=== PATIENT | female | born 1990 | race Caucasian/White ===

== ENCOUNTER 2017-02-19 17:40 | Emergency (ER) | payer OTHER ==
[2017-02-19 18:17] VITALS: O2SAT 100
[2017-02-19 19:02] LABS: RBC URINE < 1 /hpf (0-3); URINE BACTERIA RARE (<OCC); URINE BILIRUBIN NEGATIVE (NEGATIVE); URINE BLOOD NEGATIVE (NEGATIVE); URINE COLOR Straw (YELLOW); URINE GLUCOSE (UA) NORMAL (Normal); URINE KETONE NEGATIVE (NEGATIVE); URINE LEUKOCYTE ESTERASE TRACE Leu/uL (Negative); URINE PROTEIN NEGATIVE (NEGATIVE); URINE UROBILINOGEN NORMAL mg/dL (0.2-1.0); WBC URINE 5 /hpf (0-5)
[2017-02-19] MEDS ORDERED: Sodium Chloride 0.9% 1,000 ML IV ONE (20:18)
[2017-02-19 21:01] LABS: BASO % 0.3 % (0.0-2.0); EOS # 0.2 K/uL (0.0-0.7); EOS % 2.9 % (0.0-4.0); HEMATOCRIT 41.7 % (34.0-47.0); LYMPH % 26.7 % (20.0-40.0); MEAN CORPUSCULAR HEMOGLOBIN 31.2 pg (27.0-31.0); MEAN CORPUSCULAR HGB CONC 33.9 g/dL (33.0-37.0); MEAN PLATELET VOLUME 7.2 fL (7.2-11.7); MONO # 1.1 K/uL (0.0-0.8); MONO % 14.2 % (0.0-10.0); NRBC % 0.1 % (0.0-2.0); RED CELL DISTRIBUTION WIDTH 13.6 % (11.5-14.5); WHITE BLOOD COUNT 7.5 K/uL (4.8-10.8)
[2017-02-19 21:10] LABS: CHLORIDE 104 mmol/L (98-107); POTASSIUM 3.5 mmol/L (3.6-5.2); SODIUM 140 mmol/L (132-148)
[2017-02-19 21:12] LABS: GFR AFRICAN-AMERICAN > 60
[2017-02-19 21:13] LABS: ALB/GLOB RATIO 1.3 (1.0-2.1); ALKALINE PHOSPHATASE 67 U/L (38-126); ALT/SGPT 27 U/L (9-52); AST/SGOT 22 U/L (14-36); BILIRUBIN,TOTAL 1.1 mg/dL (0.2-1.3); BLOOD UREA NITROGEN 8 mg/dL (7-17); CALCIUM 8.5 mg/dl (8.6-10.4); CARBON DIOXIDE 25 mmol/L (22-30); GLUCOSE,RANDOM 80 mg/dL (65-105); TOTAL PROTEIN 7.4 g/dL (6.3-8.3)
--- NOTE | 2017-02-19 21:30 | C.PDOC ---
History Of Present Illness 26 y/o female presents to ED with complaints of back pain for 1 week and x1 episode of vomiting yesterday. (+) urinary frequency. Denies abdominal pain, fever, chest pain, SOB, or any other complaints at this time. Time Seen by Provider: 02/19/17 19:54 Chief Complaint (Nursing): Back Pain History Per: Patient History/Exam Limitations: no limitations Onset/Duration Of Symptoms: Days Current Symptoms Are (Timing): Still Present Quality Of Discomfort: "Pain" Past Medical History Reviewed: Historical Data, Nursing Documentation, Vital Signs Vital Signs: Last Vital Signs Temp 98.1 F 02/19/17 21:30 Pulse 79 02/19/17 21:30 Resp 18 02/19/17 21:30 BP 126/72 02/19/17 21:30 Pulse Ox 100 02/19/17 22:12 - Medical History PMH: No Chronic Diseases Surgical History: No Surg Hx - [facility] Procedures DELIVERY OF PRODUCTS OF CONCEPTION, EXTERNAL APPROACH (06/13/15) REPAIR PERINEUM MUSCLE, OPEN APPROACH (06/13/15) Family History: States: No Known Family Hx - Social History Hx Tobacco Use: No Hx Alcohol Use: No Hx Substance Use: No - Immunization History Hx Tetanus Toxoid Vaccination: No Hx Influenza Vaccination: No Hx Pneumococcal Vaccination: No Review Of Systems Except As Marked, All Systems Reviewed And Found Negative. Constitutional: Negative for: Fever, Chills Gastrointestinal: Positive for: Vomiting. Negative for: Nausea, Abdominal Pain , Diarrhea Genitourinary: Negative for: Dysuria, Hematuria, Vaginal Discharge Musculoskeletal: Positive for: Back Pain Skin: Negative for: Rash Neurological: Positive for: Headache Physical Exam - Physical Exam Appears: Non-toxic, No Acute Distress Skin: Normal Color, Warm, Dry, No Rash Head: Atraumatic, Normacephalic Eye(s): bilateral: Normal Inspection, EOMI Nose: Normal Oral Mucosa: Moist Neck: Normal ROM, Supple Chest: Symmetrical Cardiovascular: Rhythm Regular, No Murmur Respiratory: Normal Breath Sounds, No Rales, No Rhonchi, No Wheezing Gastrointestinal/Abdominal: Soft, No Tenderness, No Guarding, No Rebound Back: No CVA Tenderness, No Vertebral Tenderness, Paraspinal Tenderness ((+) paralumbar tenderness) Extremity: Normal ROM, No Tenderness Extremity: Bilateral: Atraumatic, Normal Color And Temperature, Normal ROM Neurological/Psych: Oriented x3, Normal Speech, Normal Motor, Normal Sensation Gait: Steady ED Course And Treatment - Laboratory Results Result Diagrams: 02/19/17 20:57 02/19/17 20:57 O2 Sat by Pulse Oximetry: 100 (RA) Pulse Ox Interpretation: Normal Progress Note: Toradol ordered. Discussed with pt that currently pt is asymptomatic, tolerating po, no abdominal tenderness, and labs are WNL. No signs of acute abdomen but can not be ruled out. Agreed no CT at the moment but will return to ER if symtpoms persist or worsen. UA clean, culture sent for further evaluaiton. Patient was instructed to follow up with physician/clinic in 1-2 days for further evaluation or return to ED if symptoms persist or worsen. Patient's status improved during Emergency Department evaluation. Disposition - Disposition Disposition: HOME/ ROUTINE Disposition Time: 21:29 Condition: STABLE Additional Instructions: Follow up with primary medical doctor in 1-3 days without fail for further evaluation. Take medications as prescribed. Return to the emergency department at any time if symptoms persist or worsen. Prescriptions: Ibuprofen [Motrin] 600 mg PO Q6 PRN #20 tab PRN Reason: Pain, Mild (1-3) Phenazopyridine HCl [Pyridium] 100 mg PO TID #6 tablet Instructions: Back Pain (ED) Forms: [facility] (French), Work Excuse - Clinical Impression Clinical Impression: Low back pain - PA / PRACTICE COORDINATOR / Resident Statement MD/DO has reviewed & agrees with the documentation as recorded. - Scribe Statement The provider has reviewed the documentation as recorded by the Marisa Ca All medical record entries made by the Marisa were at my direction and personally dictated by me. I have reviewed the chart and agree that the record accurately reflects my personal performance of the history, physical exam, medical decision making, and the department course for this patient. I have also personally directed, reviewed, and agree with the discharge instructions and disposition.
[2017-02-19 21:31] VITALS: BP 126/72; PULSE 79; RESP 18; TEMP 98.1
--- NOTE | 2017-02-20 09:40 | RAD ---
PROCEDURE: Radiographs of the Lumbar Spine. HISTORY: pain COMPARISON: No prior. FINDINGS: BONES: Normal alignment. No listhesis. No fracture. DISC SPACES: Unremarkable. OTHER FINDINGS: [id number] constipation. IUD is seen in the upper pelvis. IMPRESSION: No evidence of acute fracture subluxation or significant degenerative changes. Jpys-am-[id number] constipation.
== END 2017-02-19 21:55 | disposition home or self-care (01) ==
LOC: C.ER 17:40
DX: M54.5 Low back pain (principal)
CPT/HCPCS: 72100; 80053; 81001; 83690; 83880; 84703; 85025; 87086; 96374; 99285; J1885; J7040

== ENCOUNTER 2017-06-03 20:41 | Emergency (ER) | payer OTHER ==
[2017-06-03 22:27] LABS: HCG,QUALITATIVE URINE NEGATIVE (NEGATIVE)
[2017-06-03 22:28] LABS: SQUAMOUS EPITHIAL 1 /hpf (0-5); URINE BILIRUBIN NEGATIVE (NEGATIVE); URINE BLOOD NEGATIVE (NEGATIVE); URINE CLARITY Clear (Clear); URINE COLOR Yellow (YELLOW); URINE GLUCOSE (UA) NORMAL (Normal); URINE LEUKOCYTE ESTERASE NEG Leu/uL (Negative); URINE NITRATE NEGATIVE (NEGATIVE); URINE PROTEIN NEGATIVE (NEGATIVE); URINE UROBILINOGEN NORMAL mg/dL (0.2-1.0)
[2017-06-03] MEDS ORDERED: Sodium Chloride 0.9% 1,000 ML IV ONE (22:54)
[2017-06-03] MEDS ORDERED: Sodium Chloride 0.9% 1,000 ML ONE (23:08)
[2017-06-03 23:26] LABS: BASO # 0.1 K/uL (0.0-0.2); BASO % 1.1 % (0.0-2.0); EOS # 0.2 K/uL (0.0-0.7); EOS % 2.2 % (0.0-4.0); HEMOGLOBIN 13.2 g/dL (11.0-16.0); LYMPH # 3.7 K/uL (1.0-4.3); LYMPH % 40.1 % (20.0-40.0); MEAN CELL VOLUME 92.4 fL (81.0-99.0); MEAN CORPUSCULAR HEMOGLOBIN 31.7 pg (27.0-31.0); MEAN CORPUSCULAR HGB CONC 34.3 g/dL (33.0-37.0); MEAN PLATELET VOLUME 7.5 fL (7.2-11.7); MONO # 0.9 K/uL (0.0-0.8); NEUT # 4.3 K/uL (1.8-7.0); NEUT % 46.6 % (50.0-75.0); RBC 4.17 Mil/uL (3.80-5.20); RED CELL DISTRIBUTION WIDTH 13.5 % (11.5-14.5); WHITE BLOOD COUNT 9.2 K/uL (4.8-10.8)
[2017-06-03 23:38] LABS: ALB/GLOB RATIO 1.2 (1.0-2.1); ALBUMIN 3.9 g/dL (3.5-5.0); ALT/SGPT 27 U/L (9-52); AST/SGOT 22 U/L (14-36); BLOOD UREA NITROGEN 8 mg/dL (7-17); CALCIUM 8.5 mg/dl (8.6-10.4); GFR AFRICAN-AMERICAN > 60; GFR NON-AFRICAN AMERICAN > 60; LIPASE 207 U/L (23-300)
--- NOTE | 2017-06-04 00:04 | C.PDOC ---
History Of Present Illness Patient is a 26 y/o female who presents to the ED with a complaint of crampy lower abdominal discomfort for the last 3 days. Patient denies any high risk sexual intercourse or vaginal intercourse. No other physical complaints at this time. Time Seen by Provider: 06/03/17 21:59 Chief Complaint (Nursing): Abdominal Pain History Per: Patient History/Exam Limitations: no limitations Onset/Duration Of Symptoms: Days (3) Current Symptoms Are (Timing): Still Present Location Of Pain/Discomfort: Suprapubic Quality Of Discomfort: Cramping Past Medical History Reviewed: Historical Data, Nursing Documentation, Vital Signs Vital Signs: Last Vital Signs Temp 97.8 F 06/04/17 00:18 Pulse 73 06/04/17 00:18 Resp 18 06/04/17 00:18 BP 111/70 06/04/17 00:18 Pulse Ox 100 06/04/17 00:18 - Medical History PMH: No Chronic Diseases Surgical History: No Surg Hx - [facility] Procedures DELIVERY OF PRODUCTS OF CONCEPTION, EXTERNAL APPROACH (06/13/15) REPAIR PERINEUM MUSCLE, OPEN APPROACH (06/13/15) Family History: States: No Known Family Hx - Social History Hx Tobacco Use: No Hx Alcohol Use: No Hx Substance Use: No - Immunization History Hx Tetanus Toxoid Vaccination: No Hx Influenza Vaccination: No Hx Pneumococcal Vaccination: No Review Of Systems Gastrointestinal: Positive for: Abdominal Pain (lower), Constipation Genitourinary: Negative for: Vaginal Discharge Physical Exam - Physical Exam Appears: Well, Non-toxic, No Acute Distress Skin: Normal Color, Warm, Dry Head: Atraumatic, Normacephalic Oral Mucosa: Moist Cardiovascular: Rhythm Regular, No Murmur Respiratory: Normal Breath Sounds, No Rales, No Rhonchi, No Wheezing Gastrointestinal/Abdominal: Soft, No Tenderness, Other (mild suprapubic fullness ) ED Course And Treatment - Laboratory Results Result Diagrams: 06/03/17 23:23 06/03/17 23:23 Lab Interpretation: Normal (ua neg) Urine POC: Negative O2 Sat by Pulse Oximetry: 98 - Radiology CXR: Interpreted by Me CXR Interpretation: Yes: No Acute Disease - Other Rad abd x 2 X-Ray: Interpreted by Me (+FOS no obst/FA) Progress Note: obstructive series xr ordered. gc test, toradol, and iv fluids administered. Reevaluation Time: 00:04 Reassessment Condition: Improved Medical Decision Making Medical Decision Making: constipation LOW susp of GC/Chlamydia- sent and pending @ d/c. did NOT treat empirically. Disposition Doctor Will See Patient In The: Office Counseled Patient/Family Regarding: Studies Performed, Diagnosis - Disposition Referrals: [facility] [Outside] [facility] [Outside] Disposition: HOME/ ROUTINE Disposition Time: 00:05 Condition: GOOD Additional Instructions: Estrenemiento: juan ramon joshua botella del purgante (Citrato de Magnesio) ahora, y re-evalua vital molestia del abdomen despues de usar el francine 2-3 veces Sigue joshua dieta saludable come 7 verduras y frutas crudas diarios Juan Ramon mas agua. Purgantes o' laxantes oswald necessario si las sintoma se reoccuran. Prueba de la orina: Fue mandado al laboratorio Si sale positivo le llamamos Si sale negativo no te llamamos- esta normal. Sigue en la [facility] (gratis) oswald necessario. Prescriptions: Magnesium Citrate [[facility] Magnesium Citrate] 300 ml PO ONCE PRN #1 bottle PRN Reason: Constipation Instructions: Constipation (ED) Forms: [facility] (Italian) Print Language: LATVIAN - Clinical Impression Clinical Impression: Colicky periumbilical abdominal pain - Scribe Statement The provider has reviewed the documentation as recorded by the Scribe Lanny Fritz All medical record entries made by the Scribe were at my direction and personally dictated by me. I have reviewed the chart and agree that the record accurately reflects my personal performance of the history, physical exam, medical decision making, and the department course for this patient. I have also personally directed, reviewed, and agree with the discharge instructions and disposition.
[2017-06-04 00:20] VITALS: BP 111/70; PULSE 73; RESP 18; TEMP 97.8
[2017-06-04 00:42] VITALS: O2SAT 98
--- NOTE | 2017-06-04 08:39 | RAD ---
PROCEDURE: Radiographs of the chest and abdomen (obstructive series) HISTORY: abd pain COMPARISON: No prior. TECHNIQUE: AP radiograph of the chest, with upright and supine radiographs of the abdomen. FINDINGS: CHEST: Lungs: Clear. Cardiovascular: Normal size heart. No pulmonary vascular congestion. Pleura: No pleural fluid. No pneumothorax. Other findings: None. ABDOMEN AND PELVIS: Bowel: Extensive left and right stool retention. No evidence of mechanical obstruction. Free air: None. Bones: Unremarkable. Other findings: Pelvic IUD IMPRESSION: Extensive left and right stool retention. No evidence of mechanical obstruction.
== END 2017-06-04 00:30 | disposition home or self-care (01) ==
LOC: C.ER 20:41
DX: R10.33 Periumbilical pain (principal)
CPT/HCPCS: 74022; 80053; 81001; 83690; 84703; 85025; 87491; 87591; 96374; 99284; J1885; J7040

== ENCOUNTER 2017-07-17 18:56 | Emergency (ER) | payer OTHER ==
[2017-07-17 20:28] VITALS: O2SAT 100
[2017-07-17 21:42] VITALS: BP 141/96; PULSE 66; RESP 18; TEMP 98.2
[2017-07-17] MEDS ORDERED: Sodium Chloride 0.9% 500 ML IV STA (21:59)
--- NOTE | 2017-07-17 22:53 | C.PDOC ---
History Of Present Illness 27 year old female presents to the ED for evaluation of frontal headache x4 days , progressively worsening since yesterday. She complains of pain into right side of neck and right ear since yesterday. Patient denies dizziness, photophobia or vision changes , no weakness, numbness. She states that she has never had a headache as intense as this. She has tried taking Tylenol with minimal relief but headache persists. Time Seen by Provider: 07/17/17 21:50 Chief Complaint (Nursing): Headache History Per: Patient History/Exam Limitations: no limitations Onset/Duration Of Symptoms: Days Current Symptoms Are (Timing): Worse Severity: Moderate Preceeding Symptoms: None Associated Symptoms: denies: Blurred Vision Recent travel outside of the [place]: No Past Medical History Reviewed: Historical Data, Nursing Documentation, Vital Signs Vital Signs: Last Vital Signs Temp 98.2 F 07/17/17 21:42 Pulse 66 07/17/17 21:42 Resp 18 07/17/17 21:42 BP 141/96 H 07/17/17 21:42 Pulse Ox 100 07/18/17 00:43 - [facility] Procedures DELIVERY OF PRODUCTS OF CONCEPTION, EXTERNAL APPROACH (06/13/15) REPAIR PERINEUM MUSCLE, OPEN APPROACH (06/13/15) Family History: States: Unknown Family Hx - Social History Hx Tobacco Use: No Hx Alcohol Use: No Hx Substance Use: No - Immunization History Hx Tetanus Toxoid Vaccination: No Hx Influenza Vaccination: No Hx Pneumococcal Vaccination: No Review Of Systems Constitutional: Negative for: Fever, Chills Eyes: Negative for: Vision Change ENT: Positive for: Ear Pain Cardiovascular: Negative for: Chest Pain Respiratory: Negative for: Shortness of Breath Gastrointestinal: Negative for: Nausea, Vomiting, Abdominal Pain, Diarrhea Musculoskeletal: Positive for: Neck Pain Skin: Negative for: Rash Neurological: Positive for: Headache. Negative for: Weakness, Numbness, Dizziness Physical Exam - Physical Exam Appears: Well, Non-toxic, No Acute Distress Skin: Normal Color, Warm, Dry Head: Atraumatic, Normacephalic, Other (tender right postauricular adenopathy) Eye(s): bilateral: Normal Inspection, PERRL, EOMI Ear(s): Bilateral: Normal Oral Mucosa: Moist Throat: Normal Neck: Normal ROM, Supple, Other (No meningeal signs, no neck swelling) Cardiovascular: Rhythm Regular Respiratory: Normal Breath Sounds, No Rales, No Rhonchi, No Wheezing Gastrointestinal/Abdominal: Soft, No Tenderness Back: Normal Inspection Extremity: Normal ROM, No Deformity Neurological/Psych: Oriented x3, Normal Speech, Normal Cranial Nerves, Normal Motor, Normal Sensation Gait: Steady ED Course And Treatment O2 Sat by Pulse Oximetry: 100 Pulse Ox Interpretation: Normal Progress Note: Plan: IV reglan, toridol, and head CT. Reassessment Condition: Improved (Pt feels better. Head CT with no acute abn. Pt ambulatiry and neuro intact. Advised PMD f/u. Return precautions discussed and agreed by pt) Disposition - Disposition Disposition: HOME/ ROUTINE Disposition Time: 00:39 Condition: STABLE Additional Instructions: Please follw up with PMD Take meds as directed\ Return to ER if worse Prescriptions: Ibuprofen [Motrin] 600 mg PO Q6H #24 tab Instructions: Headache, Adult (DC) Forms: [facility] (Nigerian) - Clinical Impression Clinical Impression: Headache - Scribe Statement he provider has reviewed the documentation as recorded by the Scribe (Shant Carpio) Provider Attestation All medical record entries made by the Scribe were at my direction and personally dictated by me. I have reviewed the chart and agree that the record accurately reflects my personal performance of the history, physical exam, medical decision making, and the department course for this patient. I have also personally directed, reviewed, and agree with the discharge instructions and disposition.
--- NOTE | 2017-07-18 08:27 | CT ---
PROCEDURE: CT HEAD WITHOUT CONTRAST. HISTORY: Headache COMPARISON: None available. TECHNIQUE: Axial computed tomography images were obtained through the head/brain without intravenous contrast. Radiation dose: Total exam DLP = 788 mGy-cm. This CT exam was performed using one or more of the following dose reduction techniques: Automated exposure control, adjustment of the mA and/or kV according to patient size, and/or use of iterative reconstruction technique. FINDINGS: HEMORRHAGE: No intracranial hemorrhage. BRAIN: No mass effect or edema. No atrophy or chronic microvascular ischemic changes. VENTRICLES: Unremarkable. No hydrocephalus. CALVARIUM: Unremarkable. PARANASAL SINUSES: Mucoperiosteal thickening in the sphenoid sinuses consistent with chronic sinusitis. MASTOID AIR CELLS: Unremarkable as visualized. No inflammatory changes. OTHER FINDINGS: None. IMPRESSION: No evidence of acute intracranial abnormality. If headache persists, consider further evaluation with MRI. These findings were preliminarily reported at 11:48 p.m. on 07/17/[address] Meghana Hoffman from [facility].
== END 2017-07-18 00:46 | disposition home or self-care (01) ==
LOC: C.ER 18:56
DX: R51 Headache (principal)
CPT/HCPCS: 70450; 96361; 96374; 96375; 99285; J1885; J2765; J7040

== ENCOUNTER 2017-07-28 17:44 | Emergency (ER) | payer OTHER ==
[2017-07-28 17:51] VITALS: BMI 20.1
[2017-07-28 17:53] VITALS: BP 157/92; PULSE 92; RESP 18; TEMP 98.3; O2SAT 100
[2017-07-28] MEDS ORDERED: Apap-Butalbital-Caffeine 325-50-40mg Tab PO STA (18:10)
--- NOTE | 2017-07-28 18:12 | C.PDOC ---
History Of Present Illness 27 year old female presents to ED for evaluation of intermittent episodes of headache for the last 2 weeks. Patient states that the headache starts at the back of the head and moves forward. She also reports associated nausea occasionally. Notes taking Ibuprofen with transient relief. Notes she was seen in the ER last week, and had CT scan done. Patient states she tried to follow up with neurologist but was not able to find an appointment within the next few days. Patient is requesting to have more testing and further evaluation of her persistent headache. Denies dizziness, lightheadedness, visual changes, change in speech, extremity weakness, numbness, nausea, vomiting, or fever. Patient also states her blood pressure was high, and has been told in the past she has hypertension but has not been taking any meds for it. Denies chest pain, or shortness of breath. Time Seen by Provider: 07/28/17 17:58 Chief Complaint (Nursing): Headache History Per: Patient History/Exam Limitations: no limitations Onset/Duration Of Symptoms: Days, Intermittent Episodes Current Symptoms Are (Timing): Still Present Quality: Aching Preceeding Symptoms: denies: Visual Disturbances, Known Migraine Symptoms Associated Symptoms: denies: Photophobia, Blurred Vision, Nausea, Vomiting, Extremity Weakness Recent travel outside of the [place]: No Additional History Per: Patient Past Medical History Reviewed: Historical Data, Nursing Documentation, Vital Signs Vital Signs: Last Vital Signs Temp 98.3 F 07/28/17 17:51 Pulse 92 H 07/28/17 17:51 Resp 18 07/28/17 17:51 BP 157/92 H 07/28/17 17:51 Pulse Ox 100 07/28/17 19:00 - [facility] Procedures DELIVERY OF PRODUCTS OF CONCEPTION, EXTERNAL APPROACH (06/13/15) REPAIR PERINEUM MUSCLE, OPEN APPROACH (06/13/15) Family History: States: Unknown Family Hx - Social History Hx Tobacco Use: No Hx Alcohol Use: No Hx Substance Use: No - Immunization History Hx Tetanus Toxoid Vaccination: No Hx Influenza Vaccination: No Hx Pneumococcal Vaccination: No Review Of Systems Except As Marked, All Systems Reviewed And Found Negative. Constitutional: Negative for: Fever, Chills Eyes: Negative for: Vision Change Cardiovascular: Negative for: Chest Pain, Palpitations, Edema, Light Headedness Respiratory: Negative for: Cough, Shortness of Breath Gastrointestinal: Negative for: Nausea, Vomiting Neurological: Positive for: Headache. Negative for: Weakness, Numbness, Change in Speech, Dizziness Physical Exam - Physical Exam Appears: Non-toxic, No Acute Distress Skin: Normal Color, Warm, Dry Head: Atraumatic, Normacephalic Eye(s): bilateral: Normal Inspection, PERRL, EOMI, Other (no nystagmus) Ear(s): Bilateral: Normal Nose: Normal Oral Mucosa: Moist Tongue: Normal Appearing Lips: Normal Appearing Throat: Normal, No Erythema, No Exudate, No Drooling Neck: Normal ROM, Supple Chest: Symmetrical, No Tenderness Cardiovascular: Rhythm Regular, No Murmur Respiratory: Normal Breath Sounds, No Rales, No Rhonchi, No Wheezing Extremity: Normal ROM, No Deformity Neurological/Psych: Oriented x3, Normal Speech, Normal Cranial Nerves (2-12 Grossly Intact), Normal Motor (Equal 5/5 Strength Bilaterally), Normal Sensation , Other (no focal deficits) ED Course And Treatment O2 Sat by Pulse Oximetry: 100 (RA) Pulse Ox Interpretation: Normal Medical Decision Making Medical Decision Making: Impression: 27 year old female complaints of intermittent headache for the last 2 weeks. Prior records reviewed patient seen in ED last week 07/18/[address] head showing no intracranial abnormality. Plan: Fioricet Reglan Reassess, dispo Progress: On reassessment, patient is resting comfortably, is tolerating PO, and headache has much improved. Patient has no neurologic deficit, photophobia, rash, fever, or nuchal rigidity. Explain to patient she needs to see neuro outpatient. Recommend DASH diet and exercise to help with HTN. Patient was instructed to follow up with clinic in 1-2 days. Disposition Counseled Patient/Family Regarding: Diagnosis, Need For Followup, Rx Given - Disposition Referrals: Nadya Barba MD [Staff Provider] - Alex Membreno MD [Staff Provider] - Disposition: HOME/ ROUTINE Disposition Time: 18:57 Condition: STABLE Additional Instructions: Please follow up in the clinic for further evaluation. Take pain medicine as needed. Try dietary changes and exercise to help with blood pressure Prescriptions: Acetaminophen/Butalbital/Caf [Fioricet] 1 tab PO Q8 PRN #20 tab PRN Reason: Headache Metoclopramide [Reglan] 1 tab PO Q8 PRN #25 tab PRN Reason: Headache Instructions: DASH Diet, Headache, Adult Forms: [facility] ([place]) - POA Present On Arrival: None - Clinical Impression Clinical Impression: HTN (hypertension), Migraine - PA / HIDE MILL MAN / Resident Statement MD/DO has reviewed & agrees with the documentation as recorded. - Scribe Statement The provider has reviewed the documentation as recorded by the Scribe Feroz Jaime All medical record entries made by the Salvatoreibe were at my direction and personally dictated by me. I have reviewed the chart and agree that the record accurately reflects my personal performance of the history, physical exam, medical decision making, and the department course for this patient. I have also personally directed, reviewed, and agree with the discharge instructions and disposition.
[2017-07-28] MEDS ORDERED: Apap-Butalbital-Caffeine 325-50-40mg Tab ONE (18:23)
== END 2017-07-28 19:10 | disposition home or self-care (01) ==
LOC: C.ER 17:44
DX: I10 Essential (primary) hypertension (principal); G43.909 Migraine, unspecified, not intractable, without status migrainosus

== ENCOUNTER 2017-08-28 18:12 | Emergency (ER) | payer OTHER ==
[2017-08-28 18:12] VITALS: BMI 20.1
[2017-08-28 18:21] VITALS: TEMP 98.7; O2SAT 100
--- NOTE | 2017-08-28 19:45 | C.PDOC ---
History Of Present Illness 27 y/o female presents to the ED complaining of left-sided chest pain radiating to her left arm, onset today. Also complains of daily headaches. Patient was seen here at end of June and in early July for the headaches and had a negative work-up including labs and CT. She has been treated with Toradol, Fioricet, and nsaids without relief. Headache is described as frontal, occipital , constant throughout the day. Occurs at work and on days off. Patient states she feels hot inside but no fever, chills, cough, shortness of breath, URI symptoms, nausea, vomiting, visual disturbances, or neck pain. She was referred to the clinic and has an appointment on 09/09. Time Seen by Provider: 08/28/17 19:15 Chief Complaint (Nursing): Weakness/Neurological Deficit History Per: Patient History/Exam Limitations: no limitations Onset/Duration Of Symptoms: Days Current Symptoms Are (Timing): Still Present Past Medical History Reviewed: Historical Data, Nursing Documentation, Vital Signs Vital Signs: Last Vital Signs Temp 98.7 F 08/28/17 18:17 Pulse 72 08/28/17 19:41 Resp 16 08/28/17 19:41 BP 141/87 08/28/17 19:41 Pulse Ox 100 08/28/17 21:18 - Medical History PMH: No Chronic Diseases Surgical History: No Surg Hx - [facility] Procedures DELIVERY OF PRODUCTS OF CONCEPTION, EXTERNAL APPROACH (06/13/15) REPAIR PERINEUM MUSCLE, OPEN APPROACH (06/13/15) Family History: States: Unknown Family Hx - Social History Hx Tobacco Use: No Hx Alcohol Use: No Hx Substance Use: No - Immunization History Hx Tetanus Toxoid Vaccination: No Hx Influenza Vaccination: No Hx Pneumococcal Vaccination: No Review Of Systems Except As Marked, All Systems Reviewed And Found Negative. Constitutional: Negative for: Fever, Chills Eyes: Negative for: Vision Change ENT: Negative for: Nose Congestion, Throat Pain Cardiovascular: Positive for: Chest Pain Respiratory: Negative for: Cough, Shortness of Breath Gastrointestinal: Negative for: Nausea, Vomiting, Abdominal Pain Musculoskeletal: Positive for: Arm Pain. Negative for: Neck Pain Neurological: Positive for: Headache Physical Exam - Physical Exam Appears: Non-toxic, No Acute Distress Skin: Normal Color, Warm, Dry Head: Atraumatic, Normacephalic Eye(s): bilateral: Normal Inspection, PERRL, EOMI Ear(s): Bilateral: Normal Nose: Normal Oral Mucosa: Moist Throat: Normal, No Erythema, No Exudate Neck: Normal ROM, Supple, No Other (meningeal signs) Chest: Symmetrical, No Tenderness Cardiovascular: Rhythm Regular, No Murmur Respiratory: Normal Breath Sounds, No Accessory Muscle Use, No Rhonchi, No Wheezing Gastrointestinal/Abdominal: Soft, No Tenderness, No Distention Extremity: Bilateral: Atraumatic, Normal Color And Temperature, Normal ROM Neurological/Psych: Oriented x3, Normal Speech ED Course And Treatment - Laboratory Results Result Diagrams: 08/28/17 19:38 08/28/17 19:38 Lab Interpretation: Normal ECG: Interpreted By Me ECG Rhythm: Sinus Rhythm ECG Interpretation: Normal O2 Sat by Pulse Oximetry: 100 (RA) Pulse Ox Interpretation: Normal - Radiology CXR: Interpreted by Me CXR Interpretation: Yes: No Acute Disease Progress Note: Labs reviewed, troponin is negative. Blood work is unremarkable. Reevaluation Time: 21:43 Reassessment Condition: Improved (BP 137/62) Medical Decision Making Medical Decision Making: Impression: 27 y/o female with daily headaches and 1 day of chest pain Time: 19:29 Initial Plan: * EKG * CMP * CBC * Troponin I * Chest x-ray * Urinalysis * Urine preg * Reevaluation Disposition Counseled Patient/Family Regarding: Studies Performed, Diagnosis, Need For Followup - Disposition Referrals: [facility] [Outside] Disposition: HOME/ ROUTINE Disposition Time: 21:43 Condition: IMPROVED Instructions: Chest Pain That Is Not Caused by the Heart (DC), Headache, Adult Forms: [employer] (Citizen [place]) - Clinical Impression Clinical Impression: Headache, Non-cardiac chest pain - Scribe Statement The provider has reviewed the documentation as recorded by the Scribe (Kamille Butler) Provider Attestation: All medical record entries made by the Scribe were at my direction and personally dictated by me. I have reviewed the chart and agree that the record accurately reflects my personal performance of the history, physical exam, medical decision making, and the department course for this patient. I have also personally directed, reviewed, and agree with the discharge instructions and disposition.
[2017-08-28 19:48] LABS: SQUAMOUS EPITHIAL < 1 /hpf (0-5); URINE BILIRUBIN NEGATIVE (NEGATIVE); URINE BLOOD NEGATIVE (NEGATIVE); URINE CLARITY Clear (Clear); URINE COLOR Straw (YELLOW); URINE GLUCOSE (UA) NORMAL (Normal); URINE LEUKOCYTE ESTERASE NEG Leu/uL (Negative); URINE PROTEIN NEGATIVE (NEGATIVE); URINE UROBILINOGEN NORMAL mg/dL (0.2-1.0)
[2017-08-28 19:49] LABS: HCG,QUALITATIVE URINE NEGATIVE (NEGATIVE)
[2017-08-28 19:57] LABS: ALB/GLOB RATIO 1.1 (1.0-2.1); ALBUMIN 4.3 g/dL (3.5-5.0); ALT/SGPT 25 U/L (9-52); AST/SGOT 25 U/L (14-36); BLOOD UREA NITROGEN 10 mg/dL (7-17); CALCIUM 9.3 mg/dl (8.6-10.4); GFR AFRICAN-AMERICAN > 60; GFR NON-AFRICAN AMERICAN > 60
[2017-08-28 19:59] LABS: BASO % 0.3 % (0.0-2.0); EOS # 0.3 K/uL (0.0-0.7); HEMOGLOBIN 14.2 g/dL (11.0-16.0); LYMPH # 3.1 K/uL (1.0-4.3); LYMPH % 35.2 % (20.0-40.0); MEAN CORPUSCULAR HEMOGLOBIN 31.8 pg (27.0-31.0); MEAN CORPUSCULAR HGB CONC 34.3 g/dL (33.0-37.0); MEAN PLATELET VOLUME 7.7 fL (7.2-11.7); MONO # 0.8 K/uL (0.0-0.8); MONO % 9.3 % (0.0-10.0); NEUT # 4.6 K/uL (1.8-7.0); NEUT % 52.2 % (50.0-75.0); NRBC % 0.1 % (0.0-2.0); RBC 4.47 Mil/uL (3.80-5.20); RED CELL DISTRIBUTION WIDTH 13.2 % (11.5-14.5); WHITE BLOOD COUNT 8.9 K/uL (4.8-10.8)
[2017-08-28 21:57] VITALS: BP 136/87; PULSE 89; RESP 20
--- NOTE | 2017-08-29 09:46 | RAD ---
PROCEDURE: CHEST RADIOGRAPH, 1 VIEW HISTORY: Chest pain COMPARISON: 12/03/2016. FINDINGS: LUNGS: The lungs are well inflated and clear. PLEURA: No pneumothorax or pleural fluid seen. CARDIOVASCULAR: Normal. OSSEOUS STRUCTURES: No significant abnormalities. VISUALIZED UPPER ABDOMEN: Normal. OTHER FINDINGS: None. IMPRESSION: No active pulmonary disease.
--- NOTE | 2017-08-30 07:51 | CARD ---
APPROVED REPORT EKG Measurement Heart [id number] <Conclusion> Normal sinus rhythm Normal ECG
== END 2017-08-28 21:58 | disposition home or self-care (01) ==
LOC: C.ER 18:12
DX: R07.89 Other chest pain (principal); R51 Headache